=== PATIENT | male | born 1990 | race African-American/Black ===

== ENCOUNTER 2018-03-06 12:17 | Emergency (ER) | payer SELFPAY ==
[2018-03-06] MEDS ORDERED: Lidocaine 1% PF 5 ML VIAL ONE ×2 (13:38→13:42)
[2018-03-06] MEDS ORDERED: Cephalexin 250 MG CAP ONE ×2 (14:18→14:19)
[2018-03-06] MEDS ORDERED: Sulfameth/Trimethoprim DS 800-160mg TAB ONE (14:18)
== END 2018-03-06 14:26 | disposition home or self-care (01) ==
LOC: ERS 12:17
DX: L02.214 Cutaneous abscess of groin (principal); J45.909 Unspecified asthma, uncomplicated; F17.210 Nicotine dependence, cigarettes, uncomplicated
CPT/HCPCS: 10060; 87070; 87205; J2001

== ENCOUNTER 2018-04-17 16:08 | Emergency (ER) | payer SELFPAY ==
--- NOTE | 2018-04-17 16:55 | RAD ---
RIGHT ANKLE THREE VIEWS: HISTORY: Ankle injury. FINDINGS: There is marked soft tissue swelling adjacent to the lateral malleolus. There are no signs of fractu re or joint effusion. IMPRESSION: No evidence of fracture. POS: [facility]
[2018-04-17] MEDS ORDERED: Ibuprofen 600 MG TAB ONE (17:54)
== END 2018-04-17 18:04 ==
LOC: SCSER 16:08
DX: S93.401A Sprain of unspecified ligament of right ankle, initial encounter (principal); J45.909 Unspecified asthma, uncomplicated; F17.210 Nicotine dependence, cigarettes, uncomplicated; X50.9XXA Other and unspecified overexertion or strenuous movements or postures, initial encounter; Y93.67 Activity, basketball

== ENCOUNTER 2018-11-26 08:41 | Emergency (ER) | payer SELFPAY ==
--- NOTE | 2018-11-26 09:52 | RAD ---
RIGHT FOOT 3 VIEWS: HISTORY: Right foot pain, injury FINDINGS: No acute fracture or dislocation is identified.
== END 2018-11-26 10:27 | disposition home or self-care (01) ==
LOC: ERS 08:41
DX: M25.571 Pain in right ankle and joints of right foot (principal); F17.210 Nicotine dependence, cigarettes, uncomplicated

== ENCOUNTER 2019-01-20 12:05 | Emergency (ER) | payer SELFPAY ==
[2019-01-20] MEDS ORDERED: Dicyclomine 20 MG TAB ONE (13:18)
[2019-01-20] MEDS ORDERED: Ondansetron ODT 4 MG TAB ONE (13:18)
== END 2019-01-20 14:34 | disposition home or self-care (01) ==
LOC: ERS 12:05
DX: J02.9 Acute pharyngitis, unspecified (principal); R11.2 Nausea with vomiting, unspecified; R19.7 Diarrhea, unspecified; J45.909 Unspecified asthma, uncomplicated; F17.210 Nicotine dependence, cigarettes, uncomplicated
CPT/HCPCS: 99283; Q0162

== ENCOUNTER 2019-04-25 15:40 | Emergency (ER) | payer SELFPAY ==
[2019-04-25] MEDS ORDERED: Acetaminophen 500 MG TAB ONE (17:04)
[2019-04-25] MEDS ORDERED: Bicillin LA 1.2 MILLION UNITS/2 ML SYRINGE ONE (17:04)
== END 2019-04-25 17:25 | disposition home or self-care (01) ==
LOC: ERS 15:40
DX: J02.0 Streptococcal pharyngitis (principal); J45.909 Unspecified asthma, uncomplicated; F17.210 Nicotine dependence, cigarettes, uncomplicated
CPT/HCPCS: 87430; 96372; 99283; J0561

== ENCOUNTER 2021-03-25 12:09 | Emergency (ER) | payer SELFPAY ==
[2021-03-25 18:20] LABS: SARS-CoV-2 PCR by NAA Not Detected (NotDetected)
== END 2021-03-25 14:20 | disposition home or self-care (01) ==
LOC: ERS 12:09
DX: Z20.822 Contact with and (suspected) exposure to COVID-19 (principal)
CPT/HCPCS: 99283; U0003; U0005